=== PATIENT | male | born 1980 | race Two or more races ===

== ENCOUNTER 2024-10-25 14:43 | Emergency (ER) | payer MEDICAID, OTHER ==
[~2024-10-25] VITALS: Ht 152.4 cm; Wt 68.0 kg
[2024-10-25 14:59] VITALS: BP 117/71; TEMP 98.2
[2024-10-25] MEDS ORDERED: SULF1TAB48 PO (15:45)
[2024-10-25] MEDS ORDERED: CEPH-570 PO (15:45)
[2024-10-25] MEDS: CEFAZOLIN 1 GM VIAL IM ONE (16:00)
[2024-10-25 16:42] VITALS: O2SAT 98
== END 2024-10-25 16:43 | disposition home or self-care (01) ==
LOC: ER 14:52
DX: S01.81XD Laceration without foreign body of other part of head, subsequent encounter (principal); L08.9 Local infection of the skin and subcutaneous tissue, unspecified; X58.XXXD Exposure to other specified factors, subsequent encounter
CPT/HCPCS: 99283; 96372; J0690